=== PATIENT | female | born 1955 | race Caucasian/White ===

== ENCOUNTER 2021-04-11 20:20 | Emergency (ER) | payer OTHER, SELFPAY ==
[2021-04-11 20:25] VITALS: BP 142/74; PULSE 77; RESP 17; TEMP 36.6; O2SAT 98; BMI 26.4
[2021-04-11] MEDS: TET,DIPH,PERTUSS(ACELL),VAC/PF 0.5 ML SYRINGE IM (21:12)
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
[2021-04-12] MEDS: HYDROMORPHONE 1 MG INJ IM (00:26)
[2021-04-12] MEDS: HYDROCODONE/ACET 5/325 PREPACK 1 BOTTLE MISC (00:50)
== END 2021-04-12 00:55 | disposition home or self-care (01) ==
PROVIDERS: Emergency Provider Emergency Medicine
DX: T24.221A Burn of second degree of right knee, initial encounter (principal); X15.0XXA Contact with hot stove (kitchen), initial encounter; Z23 Encounter for immunization; T51.91XA Toxic effect of unspecified alcohol, accidental (unintentional), initial encounter; Y92.814 Boat as the place of occurrence of the external cause
CPT/HCPCS: 90471; 96372; 99283; 90715; J1170